=== PATIENT | female | born 1950 | race Caucasian/White ===

== ENCOUNTER → 2016-05-26 | Outpatient (CLI) | payer MEDICARE ==
[~2016-05-26] MED LIST: CALC600T12 PO; CLOBETASOL PROP TOP; ESCI20TA30 PO; HYDR-2164 PO; MULT-806 PO; NADO20TA PO; PROTOPIC TOP; SIMV40TA82 PO; TRAZ-56 PO; VENL-69 PO
== END ==
LOC: WC.BC 09:00
DX: Z12.31 Encounter for screening mammogram for malignant neoplasm of breast (principal); N64.59 Other signs and symptoms in breast
CPT/HCPCS: 77063; G0202